=== PATIENT | female | born 1935 | race Caucasian/White ===

== ENCOUNTER 2024-08-21 17:10 | Inpatient (IN) | payer OTHER ==
[~2024-08-21] VITALS: Ht 152.4 cm; Wt 44.5 kg
[2024-08-21] MEDS ORDERED: OLME40TA18 PO (17:27)
[2024-08-21 18:14] LABS: BASOPHILS % (AUTO) 0.3 % (0.0-2.0); EOSINOPHILS % (AUTO) 0.4 % (0.0-7.0); HEMATOCRIT 35.8 % (31.2-41.9); HEMOGLOBIN 11.8 g/dL (10.9-14.3); LYMPHOCYTES # (AUTO) 0.9 K/uL (0.8-4.8); LYMPHOCYTES % (AUTO) 18.7 % (20.5-51.5); MEAN CORPUSCULAR HEMOGLOBIN 28.8 uug (24.7-32.8); MEAN CORPUSCULAR HGB CONC 33 g/dL (32.3-35.6); MEAN CORPUSCULAR VOLUME 87.3 fL (75.5-95.3); MONOCYTES # (AUTO) 0.8 K/uL (0.1-1.30); MONOCYTES % (AUTO) 16.9 % (0.0-11.0); NEUTROPHILS # (AUTO) 3.2 K/uL (1.8-8.9); NEUTROPHILS % (AUTO) 63.7 % (38.5-71.5); PLATELET COUNT (AUTO) 212 K/uL (179-408); RED CELL DISTRIBUTION WIDTH 13.5 % (12.3-17.7)
[2024-08-21 18:17] LABS: DIFFERENTIAL COMMENT 1
[2024-08-21 18:33] LABS: ETHANOL < 3 MG/DL (0-10)
[2024-08-21 18:36] LABS: ANISOCYTOSIS 1+; EOSINOPHILS % (MANUAL) 1 % (0-8); HYPOCHROMASIA 1+; LYMPHOCYTES % (MANUAL) 17 % (20-40); MONOCYTES % (MANUAL) 16 % (2-10); NEUTROPHILS % (MANUAL) 66 % (42-75); PLATELET ESTIMATE ADEQUATE
[2024-08-21 18:37] LABS: ALANINE AMINOTRANSFERASE 38 U/L (14-59); ALKALINE PHOSPHATASE 107 U/L (50-136); ASPARTATE AMINOTRANSFERASE 16 U/L (15-37); BILIRUBIN,DIRECT 0.1 mg/dL (0.0-0.2); BILIRUBIN,TOTAL 0.2 mg/dL (0.2-1.0); CALCIUM 8.7 mg/dL (8.5-10.1); CARBON DIOXIDE 31 mmol/L (21-32); CHLORIDE 98 mmol/L (98-107); CREATININE 0.7 mg/dL (0.6-1.3); GLUCOSE 229 mg/dL (74-106); POTASSIUM 4.4 mmol/L (3.5-5.1); SODIUM SERUM 135 mmol/L (136-145); UREA NITROGEN, BLOOD 12 mg/dL (7-18)
[2024-08-21 18:38] LABS: ACETAMINOPHEN < 2.0 ug/mL (10-30)
[2024-08-21 19:00] LABS: *BILIRUBIN,URIN NEGATIVE (NEGATIVE); *BLOOD, URINE 1+ (NEGATIVE); *CLARITY,URINE CLEAR (CLEAR); *COLOR,URINE LIGHT YELLOW (YELLOW); *KETONES,URINE NEGATIVE (NEGATIVE); *PROTEIN,URINE NEGATIVE (NEGATIVE); *UROBILINOGEN,URINE 0.2 E.U./dl (NORMAL); LEUKOCYTE ESTERASE ,URINE TRACE (NEGATIVE); NITRITE, URINE NEGATIVE (NEGATIVE); UGLUCOSE NEGATIVE (NEGATIVE)
[2024-08-21 19:07] LABS: BACTERIA,URINE NONE SEEN /HPF (NONE SEEN); RBC,URINE 0-3 /HPF (0-3); SQUAMOUS EPITHELIAL CELL,UR FEW /HPF (NONE SEEN); WBC,URINE 0-3 /HPF (0-3)
[2024-08-21 19:12] LABS: *AMPHETAMINE, URINE NEGATIVE (NEGATIVE); *BARBITURATE, URINE NEGATIVE (NEGATIVE); *BENZODIAZEPINE, URINE NEGATIVE (NEGATIVE); *CANNABINOID, URINE NEGATIVE (NEGATIVE); *COCCAINE, URINE NEGATIVE (NEGATIVE); *OPIATE, URINE NEGATIVE (NEGATIVE); *PHENCYCLIDINE SCREEN,URINE NEGATIVE (NEGATIVE); FENTANYL, URINE NEGATIVE (NEGATIVE)
[2024-08-21] MEDS ORDERED: MAG HYDROX/AL HYDROX/SIMETH 30 ML LIQUID UDC PO PRN (23:45)
[2024-08-21] MEDS ORDERED: MAGNESIUM HYDROXIDE 30 ML LIQUID UDC PO PRN (23:45)
[2024-08-21] MEDS ORDERED: QUETIAPINE FUMARATE 25 MG TABLET PO PRN (23:45)
[2024-08-21] MEDS ORDERED: ACETAMINOPHEN 325 MG TABLET PO PRN (23:45)
[2024-08-21] MEDS ORDERED: ZOLPIDEM 5 MG TABLET PO PRN (23:45)
[2024-08-21] MEDS: BLOOD SUGAR DIAGNOSTIC 1 EACH STRIP VI ONE (23:53)
[2024-08-22 07:44] VITALS: BP 163/78; TEMP 98; O2SAT 97
[2024-08-22] MEDS ORDERED: DEXTROSE 50% 50 ML DISP.SYRIN IV PRN (10:15)
[2024-08-22] MEDS: NITROFURANTOIN/NITROFURAN MAC 100 MG CAPSULE PO SCH (11:35)
[2024-08-22] MEDS: LOSARTAN POTASSIUM 50 MG TABLET PO SCH (11:36)
[2024-08-22] MEDS: BLOOD SUGAR DIAGNOSTIC 1 EACH STRIP VI SCH (12:01)
[2024-08-22] MEDS: busPIRone 5 MG TABLET PO SCH (13:00)
[2024-08-22 16:00] VITALS: BP 125/53; TEMP 97.6; O2SAT 98
[2024-08-22 20:00] VITALS: BP 161/76; TEMP 98
[2024-08-22 20:23] VITALS: BP 149/83; O2SAT 96
[2024-08-22] MEDS: QUETIAPINE FUMARATE 25 MG TABLET PO SCH (20:57)
[2024-08-23 07:33] VITALS: BP 155/76; TEMP 97.2; O2SAT 95
[2024-08-23] MEDS ORDERED: Medication Not On Formulary EA (Olmesartan Medoxomil 1 TAB) PO SCH (09:00)
[2024-08-23 16:36] VITALS: BP 136/79; TEMP 97.7; O2SAT 95
[2024-08-23] MEDS ORDERED: LOPERAMIDE HCL 2 MG CAPSULE PO ONE (18:15)
[2024-08-23 20:08] VITALS: BP 169/76; TEMP 97.9; O2SAT 99
[2024-08-23 21:30] VITALS: BP 136/64
[2024-08-24 07:37] VITALS: BP 145/75; TEMP 97.2; O2SAT 98
[2024-08-24] MEDS: GLUCERNA SHAKE 237 ML CAN PO SCH (09:45)
[2024-08-24 11:27] LABS: BASOPHILS % (AUTO) 0.4 % (0.0-2.0); EOSINOPHILS % (AUTO) 0.4 % (0.0-7.0); HEMATOCRIT 38.8 % (31.2-41.9); HEMOGLOBIN 12.8 g/dL (10.9-14.3); LYMPHOCYTES # (AUTO) 1.1 K/uL (0.8-4.8); LYMPHOCYTES % (AUTO) 15.7 % (20.5-51.5); MEAN CORPUSCULAR HGB CONC 33 g/dL (32.3-35.6); MEAN CORPUSCULAR VOLUME 87.9 fL (75.5-95.3); MONOCYTES # (AUTO) 1.3 K/uL (0.1-1.30); MONOCYTES % (AUTO) 17.6 % (0.0-11.0); NEUTROPHILS # (AUTO) 4.7 K/uL (1.8-8.9); NEUTROPHILS % (AUTO) 65.9 % (38.5-71.5); PLATELET COUNT (AUTO) 266 K/uL (179-408); RED BLOOD CELL COUNT(AUTO) 4.41 MIL/uL (3.63-4.92); RED CELL DISTRIBUTION WIDTH 13.6 % (12.3-17.7); WHITE BLOOD COUNT (AUTO) 7.1 K/uL (3.8-11.8)
[2024-08-24 11:28] LABS: DIFFERENTIAL COMMENT 1
[2024-08-24 11:30] LABS: LYMPHOCYTES % (MANUAL) 16 % (20-40); MONOCYTES % (MANUAL) 18 % (2-10); NEUTROPHILS % (MANUAL) 66 % (42-75)
[2024-08-24 11:31] LABS: PLATELET ESTIMATE ADEQUATE
[2024-08-24 11:37] LABS: CALCIUM 8.8 mg/dL (8.5-10.1); CARBON DIOXIDE 33 mmol/L (21-32); CHLORIDE 93 mmol/L (98-107); CREATININE 0.7 mg/dL (0.6-1.3); GLUCOSE 193 mg/dL (74-106); POTASSIUM 3.8 mmol/L (3.5-5.1); SODIUM SERUM 134 mmol/L (136-145); UREA NITROGEN, BLOOD 21 mg/dL (7-18)
[2024-08-24 11:48] LABS: ALANINE AMINOTRANSFERASE 39 U/L (14-59); ALBUMIN 3.4 g/dL (3.4-5.0); ALKALINE PHOSPHATASE 100 U/L (50-136); ASPARTATE AMINOTRANSFERASE 19 U/L (15-37); BILIRUBIN,TOTAL 0.3 mg/dL (0.2-1.0); TOTAL PROTEIN, SERUM 7.5 g/dL (6.4-8.2)
[2024-08-24] MEDS: INSULIN REGULAR, HUMAN 1000 UNIT/10 ML VIAL SQ PRN (12:03)
[2024-08-24 16:00] VITALS: BP 161/63; TEMP 97.6; O2SAT 98
[2024-08-24 20:00] VITALS: BP 135/78; TEMP 98.7; O2SAT 96
[2024-08-25] MEDS: ZOLPIDEM 5 MG TABLET PO PRN (00:19)
[2024-08-25 08:10] VITALS: BP 171/77; TEMP 98; O2SAT 96
[2024-08-25 16:40] VITALS: BP 175/87; TEMP 98.5; O2SAT 98
[2024-08-25 20:12] VITALS: BP 169/89; TEMP 98.6; O2SAT 97
[2024-08-25 21:00] VITALS: BP 138/75
[2024-08-26 08:12] VITALS: BP 181/72; TEMP 97.7; O2SAT 98
[2024-08-26] MEDS: AMLODIPINE 5 MG TABLET PO SCH (11:38)
[2024-08-26 16:49] VITALS: BP 166/79; TEMP 98; O2SAT 96
[2024-08-26 19:58] VITALS: BP 159/78; TEMP 97.9; O2SAT 98
[2024-08-26] MEDS: OXCARBAZEPINE 150 MG TABLET PO SCH (20:26)
[2024-08-27 08:38] VITALS: BP 142/71; TEMP 98.3; O2SAT 100
[2024-08-27 16:38] VITALS: BP 170/76; TEMP 98.5; O2SAT 100
[2024-08-27 19:56] VITALS: BP 166/76; TEMP 98.1; O2SAT 98
[2024-08-28 08:07] VITALS: BP 159/74; TEMP 97.8; O2SAT 98
[2024-08-28] MEDS: METOPROLOL SUCCINATE XL 25 MG TAB.SR.24H PO SCH (08:57)
[2024-08-28 15:17] VITALS: BP 146/72; TEMP 98; O2SAT 98
[2024-08-28 20:00] VITALS: BP 166/76; TEMP 97.4; O2SAT 99
[2024-08-29 09:16] VITALS: BP 149/68; TEMP 98; O2SAT 96
[2024-08-29 15:09] VITALS: BP 166/74; TEMP 98; O2SAT 98
[2024-08-29 20:00] VITALS: BP 164/68; TEMP 97.8; O2SAT 97
[2024-08-30 07:35] VITALS: BP 154/71; TEMP 97.6; O2SAT 97
[2024-08-30 09:06] VITALS: BP 154/71
[2024-08-30] MEDS ORDERED: HYDROCHLOROTHIAZIDE 12.5 MG CAPSULE PO ONE (11:07)
[2024-08-30] MEDS: HYDROCHLOROTHIAZIDE 12.5 MG CAPSULE PO SCH (11:18)
== END 2024-08-30 14:45 | disposition home or self-care (01) | DRG 753 ==
LOC: ER 17:10 → GPS 22:25
PROVIDERS: ADMIT Psychiatry & Neurology Psychiatry; ATTEND Internal Medicine
DX: F39 Unspecified mood [affective] disorder (principal); G93.41 Metabolic encephalopathy; R45.850 Homicidal ideations; F22 Delusional disorders; R62.7 Adult failure to thrive; N39.0 Urinary tract infection, site not specified; Z68.1 Body mass index [BMI] 19.9 or less, adult; E11.9 Type 2 diabetes mellitus without complications; I10 Essential (primary) hypertension; Z95.0 Presence of cardiac pacemaker; Z79.899 Other long term (current) drug therapy; K90.0 Celiac disease; R41.9 Unspecified symptoms and signs involving cognitive functions and awareness
CPT/HCPCS: 36415; 85025; G0480; J1815; J7040